=== PATIENT | female | born 1990 | race Caucasian/White ===

== ENCOUNTER 2024-08-13 16:30 | Inpatient (IN) | payer BC ==
[2024-08-13] MEDS ORDERED: Lidocaine 1% 50 ML MDV INJECT PRN (18:02)
[2024-08-13] MEDS ORDERED: Ondansetron 4 MG/2 ML SDV IVPUSH PRN (18:02)
[2024-08-13] MEDS ORDERED: Sodium Chloride 0.9% 20 ML SDV IV PRN (18:02)
[2024-08-13] MEDS ORDERED: Misoprostol 200 MCG Tab PO PRN (18:02)
[2024-08-13] MEDS ORDERED: Water For Irrigation,Sterile 1,000 ML Container IRR PRN (18:02)
[2024-08-13] MEDS ORDERED: Sodium Chloride 0.9% 2.5 ML Syringe FLUSH PRN (18:02)
[2024-08-13] MEDS ORDERED: Sodium Chloride 0.9% 10 ML Syringe FLUSH PRN (18:02)
[2024-08-13] MEDS ORDERED: Carboprost Tromethamine 250 MCG/1 mL Vial IM PRN (18:02)
[2024-08-13] MEDS ORDERED: Methylergonovine 0.2 MG/1 ML Amp IM PRN (18:02)
[2024-08-13] MEDS ORDERED: Terbutaline 1 MG/ML SDV SUBCUT PRN (18:11)
[2024-08-13] MEDS ORDERED: Oxytocin/0.9 % Sodium Chloride 30 UNIT/500 ML BAG IV SCH (18:15)
[2024-08-13 18:31] LABS: BASOPHILS ABSOLUTE AUTO 0.03 K/uL (0.00-0.20); BASOPHILS PERCENT AUTO 0.3 % (0.0-1.0); EOSINOPHILS ABSOLUTE AUTO 0.06 K/uL (0.00-0.45); EOSINOPHILS PERCENT AUTO 0.6 % (0.0-6.0); HEMATOCRIT 38.8 % (37.0-47.0); HEMOGLOBIN 13.3 g/dL (12.0-16.0); IMMATURE GRAN ABSOLUTE AUTO 0.04 K/uL (0.00-0.05); IMMATURE GRAN PERCENT AUTO 0.4 % (0.0-0.4); LYMPHOCYTES PERCENT AUTO 24.4 % (24.0-44.0); MEAN CORPUSCULAR HEMOGLOBIN 30.6 pg (28.0-32.0); MEAN CORPUSCULAR HGB CONC 34.3 g/dL (32.0-36.0); MEAN CORPUSCULAR VOLUME 89.2 fL (83.0-99.0); MEAN PLATELET VOLUME 11.8 fL (9.4-12.3); MONOCYTES ABSOLUTE AUTO 0.53 K/uL (0.00-0.80); MONOCYTES PERCENT AUTO 5.4 % (0.0-8.0); NEUTROPHILS ABSOLUTE AUTO 6.76 K/uL (1.80-7.70); NEUTROPHILS PERCENT AUTO 68.9 % (41.0-71.0); PLATELET COUNT,PLT 228 K/uL (150-400); RED BLOOD CELL COUNT 4.35 M/uL (4.10-5.30); WHITE BLOOD CELL COUNT,WBC 9.82 K/uL (3.9-11.3)
[2024-08-13] MEDS: Misoprostol 25 MCG (1/4 of 100 MCG) Tab VAG PRN (18:40)
[2024-08-13] MEDS: Lactated Ringers 1,000 ML IV ONE (18:40)
[2024-08-13] MEDS ORDERED: ePHEDrine 50 MG/ML SDV IVPUSH PRN (18:46)
[2024-08-13] MEDS ORDERED: Phenylephrine HCl In 0.9% NaCl 1 MG/10 ML Syringe IVPUSH PRN (18:46)
[2024-08-13] MEDS ORDERED: dexmedeTOMIDine HCl 200 MCG/2 ML SDV EPIDUR SCH (19:00)
[2024-08-13] MEDS ORDERED: Misoprostol 25 MCG (1/4 of 100 MCG) Tab VAG PRN (22:30)
[2024-08-14] MEDS: Butorphanol 2 MG/ML SDV IVPUSH PRN (01:44)
[2024-08-14] MEDS: Oxytocin/0.9 % Sodium Chloride 30 UNIT/500 ML BAG IV SCH (03:22)
[2024-08-14] MEDS: Lactated Ringers 1,000 ML IV SCH ×2 (06:02→20:51)
[2024-08-14] MEDS: Acetaminophen 500 MG Tab PO PRN (10:41)
[2024-08-14] MEDS: Ropivacaine HCl/PF 400 MG in Premix Bag 1 BAG EPIDUR SCH (11:42)
[2024-08-14] MEDS ORDERED: Bupivacaine 0.5% 10 ML SDV ONE (18:15)
[2024-08-14] MEDS ORDERED: fentaNYL 100 MCG/2 ML SDV ONE (18:15)
[2024-08-14] MEDS ORDERED: Sodium Chloride 0.9% 10 ML Syringe FLUSH PRN (18:22)
[2024-08-14] MEDS ORDERED: Sodium Chloride 0.9% 20 ML SDV IV PRN (18:22)
[2024-08-14] MEDS ORDERED: Sodium Chloride 0.9% 2.5 ML Syringe FLUSH PRN (18:22)
[2024-08-14] MEDS ORDERED: Oxytocin 10 Units/1 ML SDV ONE (18:24)
[2024-08-14] MEDS ORDERED: Dexamethasone 4 MG/ML 5 ML MDV ONE (18:24)
[2024-08-14] MEDS ORDERED: ceFAZolin 2 GM Vial ONE (18:24)
[2024-08-14] MEDS ORDERED: Ropivacaine 0.5% 5 MG/ML 30 ML SDV ONE (18:24)
[2024-08-14] MEDS ORDERED: Ondansetron 4 MG/2 ML SDV ONE ×2 (18:24→19:09)
[2024-08-14] MEDS ORDERED: Morphine PF 10 MG/10 ML SDV ONE (18:26)
[2024-08-14] MEDS ORDERED: Oxytocin/0.9 % Sodium Chloride 30 UNIT/500 ML BAG IV SCH (18:30)
[2024-08-14] MEDS ORDERED: Lactated Ringers 1,000 ML IV SCH (18:30)
[2024-08-14] MEDS ORDERED: ceFAZolin 1 GM Vial ONE (18:39)
[2024-08-14] MEDS ORDERED: Tranexamic Acid 1,000 MG/10 ML Vial ONE (18:51)
[2024-08-14] MEDS ORDERED: Acetaminophen/oxyCODONE 325-5 MG Tab PO PRN ×3 (19:28→19:38)
[2024-08-14] MEDS ORDERED: Naloxone 0.4 MG/ML SDV IVPUSH PRN ×2 (19:28→19:38)
[2024-08-14] MEDS ORDERED: Oxytocin 10 Units/1 ML SDV IM PRN (19:28)
[2024-08-14] MEDS ORDERED: Bisacodyl 10 MG Supp RECTAL PRN (19:28)
[2024-08-14] MEDS ORDERED: Lanolin 100% Cream 7 GM Tube TOP PRN (19:28)
[2024-08-14] MEDS ORDERED: Misoprostol 200 MCG Tab RECTAL PRN (19:28)
[2024-08-14] MEDS ORDERED: Ondansetron 4 MG/2 ML SDV IVPUSH PRN ×3 (19:28→19:38)
[2024-08-14] MEDS ORDERED: Methylergonovine 0.2 MG/1 ML Amp IM PRN (19:28)
[2024-08-14] MEDS ORDERED: diphenhydrAMINE 50 MG/ML SDV IVPUSH PRN (19:28)
[2024-08-14] MEDS ORDERED: Albuterol 0.083% 2.5 MG/3 ML Neb Soln NEB PRN (19:38)
[2024-08-14] MEDS ORDERED: HYDROmorphone 1 MG/ML Syringe IVPUSH PRN (19:38)
[2024-08-14] MEDS ORDERED: Metoclopramide 10 MG/2 ML SDV IVPUSH PRN (19:38)
[2024-08-14] MEDS ORDERED: fentaNYL 50 MCG/ML SDV IVPUSH PRN (19:38)
[2024-08-14] MEDS ORDERED: fentaNYL 100 MCG/2 ML SDV IVPUSH PRN (19:38)
[2024-08-14] MEDS ORDERED: Morphine 2 MG/ML SYRINGE IVPUSH PRN (19:38)
[2024-08-14] MEDS ORDERED: Phenylephrine HCl In 0.9% NaCl 1 MG/10 ML Syringe IVPUSH PRN (19:38)
[2024-08-14 20:28] LABS: PH,UMBILICAL ARTERIAL 7.304 (7.18-7.38); PH,UMBILICAL VENOUS 7.311 (7.25-7.45)
[2024-08-14] MEDS: Ketorolac 30 MG/ML SDV IVPUSH SCH (21:19)
[2024-08-14] MEDS: Docusate Sodium 100 MG Cap PO SCH (21:23)
[2024-08-14] MEDS: Acetaminophen 1,000 MG in Premix Bag 1 BAG IV SCH (21:49)
[2024-08-15] MEDS: Simethicone 80 MG Tab.Chew PO SCH (02:24)
[2024-08-15] MEDS: diphenhydrAMINE 50 MG/ML SDV IVPUSH PRN (02:28)
[2024-08-15] MEDS: Nalbuphine 10 MG/1 ML Vial IVPUSH PRN (03:33)
[2024-08-15 05:55] LABS: HEMATOCRIT 32.6 % (37.0-47.0); HEMOGLOBIN 10.9 g/dL (12.0-16.0); MEAN CORPUSCULAR HEMOGLOBIN 30.5 pg (28.0-32.0); MEAN CORPUSCULAR HGB CONC 33.4 g/dL (32.0-36.0); MEAN CORPUSCULAR VOLUME 91.3 fL (83.0-99.0); MEAN PLATELET VOLUME 11.9 fL (9.4-12.3); PLATELET COUNT,PLT 184 K/uL (150-400); RED BLOOD CELL COUNT 3.57 M/uL (4.10-5.30); WHITE BLOOD CELL COUNT,WBC 13.76 K/uL (3.9-11.3)
[2024-08-15] MEDS: Oxytocin/0.9 % Sodium Chloride 30 UNIT/500 ML BAG ONE (10:03)
[2024-08-15] MEDS: Citric Acid/Sodium Citrate Solution 30 ML Cup PO ONE (10:04)
[2024-08-15] MEDS: Nalbuphine 10 MG/1 ML Vial IM PRN (15:01)
[2024-08-15] MEDS ORDERED: Nalbuphine 10 MG/1 ML Vial IV PRN (15:11)
[2024-08-15] MEDS: Ibuprofen 800 MG Tab PO PRN (19:37)
[2024-08-16] MEDS: diphenhydrAMINE 50 MG Cap PO PRN (00:10)
== END 2024-08-16 12:36 | disposition still patient (30) | DRG 540 ==
LOC: MW.OB 16:30 → OBSVTOIN 08-14 18:51 → MW.OB 08-14 22:47
PROVIDERS: ADMIT Obstetrics & Gynecology; ATTEND Obstetrics & Gynecology
PROC: 10907ZC Drainage of Amniotic Fluid, Therapeutic from Products of Conception, Via Natural or Artificial Opening (ICD-10-PCS; 2024-08-14)
PROC: 10H07YZ Insertion of Other Device into Products of Conception, Via Natural or Artificial Opening (ICD-10-PCS; 2024-08-14)
PROC: 3E0R3BZ Introduction of Anesthetic Agent into Spinal Canal, Percutaneous Approach (ICD-10-PCS; 2024-08-14)
PROC: 3E0DXGC Introduction of Other Therapeutic Substance into Mouth and Pharynx, External Approach (ICD-10-PCS; 2024-08-14)
PROC: 10D00Z1 Extraction of Products of Conception, Low, Open Approach (ICD-10-PCS; principal; 2024-08-14 18:45)
DX: O99.214 Obesity complicating childbirth (principal); O99.02 Anemia complicating childbirth; D62 Acute posthemorrhagic anemia; Z37.0 Single live birth; Z3A.39 39 weeks gestation of pregnancy; Z90.49 Acquired absence of other specified parts of digestive tract; Z98.890 Other specified postprocedural states
CPT/HCPCS: 36415; 51702; 59025; 82803; 85025; 85027; 85460; 86592; 86850; 86900; 86901; A9270-GY; J0131; J0595; J0665; J0690; J1100; J1200; J1885; J2274; J2300; J2405; J2590; J2791; J2795; J3010; J7120